=== PATIENT | female | born 1965 | race Caucasian/White ===

== ENCOUNTER 2024-02-09 19:08 | Inpatient (IN) | payer OTHER ==
[~2024-02-09] VITALS: Ht 157.5 cm; Wt 56.2 kg
[2024-02-09 19:15] VITALS: BP 113/65; PULSE 84; RESP 16; TEMP 98.1; O2SAT 100
[2024-02-09 20:08] LABS: BASOPHILS % (AUTO) 0.5 % (0.0-2.0); EOSINOPHILS # (AUTO) 0.1 K/uL (0-0.4); EOSINOPHILS % (AUTO) 1.4 % (0.0-4.0); HEMATOCRIT 36.5 % (36-48); LYMPHOCYTES # (AUTO) 2.2 K/uL (2.5-16.5); LYMPHOCYTES % (AUTO) 25.9 % (20.5-51.1); MEAN CORPUSCULAR HEMOGLOBIN 31 pg (27-31); MEAN CORPUSCULAR HGB CONC 33 g/dL (33-37); MEAN CORPUSCULAR VOLUME 92.9 fL (80-94); MONOCYTES # (AUTO) 0.7 K/uL (0.8-1.0); MONOCYTES % (AUTO) 8.2 % (1.7-9.3); NEUTROPHILS # (AUTO) 5.3 K/uL (1.8-7.7); PLATELET COUNT (AUTO) 345 K/uL (140-450); RED BLOOD CELL COUNT(AUTO) 3.93 MIL/uL (4.20-5.40); WHITE BLOOD COUNT (AUTO) 8.3 K/uL (4.8-10.8)
[2024-02-09 20:31] LABS: ALBUMIN 3.4 g/dL (3.4-5.0); TOTAL BILIRUBIN 0.3 mg/dL (0.0-1.0); TOTAL PROTEIN, SERUM 7.8 g/dL (6.4-8.2)
[2024-02-09] MEDS: MORPHINE SULFATE 4 MG/ML SYR IM ONE (20:55)
[2024-02-09 20:59] LABS: ANION GAP 14.1 (8-16); CALCIUM 9.2 mg/dL (8.5-10.1); CARBON DIOXIDE 26.1 mmol/L (21-32); CREATININE 1.1 mg/dL (0.6-1.3); POTASSIUM 4.2 mmol/L (3.5-5.1)
[2024-02-09] MEDS: NACL 0.9% 1,000 ML IV ONE (21:43)
[2024-02-09] MEDS: NACL 0.9% 1,000 ML IV SCH (22:30)
[2024-02-09] MEDS ORDERED: ONDANSETRON 4 MG/2 ML VIAL IVP PRN (22:30)
[2024-02-09] MEDS ORDERED: LORazepam 2 MG/ML VIAL IVP PRN (22:30)
[2024-02-09] MEDS ORDERED: MORPHINE SULFATE 2 MG/ML SYR IVP PRN (22:30)
[2024-02-09] MEDS ORDERED: HYDROcodone/APAP 5/325 MG 1 TAB TAB PO PRN (22:30)
[2024-02-09] MEDS ORDERED: ACETAMINOPHEN 325 MG TAB PO PRN (22:30)
[2024-02-09] MEDS ORDERED: PIPERACILLIN/TAZOBACTAM 3.375 GM in DEXTROSE 5% 50 ML IV ONE (23:00)
[2024-02-09] MEDS ORDERED: PIPERACILLIN/TAZOBACTAM 3.375 GM VIAL IV ONE (23:21)
[2024-02-09] MEDS: PIPERACILLIN/TAZOBACTAM 3.375 GM in DEXTROSE 5% 50 ML IV SCH (23:24)
[2024-02-10] VITALS (7 sets, daily range): BP systolic 122–137; BP diastolic 56–82; PULSE 65–75; RESP 16–18; TEMP 96.5–98.6; O2SAT 95–99
[2024-02-10] MEDS ORDERED: ACET500T99 PO (00:13)
[2024-02-10] MEDS ORDERED: ATOR20TA PO (00:13)
[2024-02-10] MEDS ORDERED: METF-1139 PO (00:13)
[2024-02-10] MEDS ORDERED: LISI10TA30 PO (00:13)
[2024-02-10] MEDS: PIPERACILLIN/TAZOBACTAM 3.375 GM in DEXTROSE 5% 50 ML IV SCH (05:00)
[2024-02-10] MEDS: PIPERACILLIN/TAZOBACTAM 3.375 GM VIAL IV ONE (05:10)
[2024-02-10 07:25] LABS: BASOPHILS % (AUTO) 0.5 % (0.0-2.0); EOSINOPHILS # (AUTO) 0.1 K/uL (0-0.4); EOSINOPHILS % (AUTO) 1.1 % (0.0-4.0); HEMATOCRIT 36.4 % (36-48); LYMPHOCYTES # (AUTO) 1.5 K/uL (2.5-16.5); LYMPHOCYTES % (AUTO) 24.9 % (20.5-51.1); MEAN CORPUSCULAR HEMOGLOBIN 31 pg (27-31); MEAN CORPUSCULAR HGB CONC 33 g/dL (33-37); MEAN CORPUSCULAR VOLUME 92.9 fL (80-94); MONOCYTES # (AUTO) 0.5 K/uL (0.8-1.0); MONOCYTES % (AUTO) 7.4 % (1.7-9.3); NEUTROPHILS # (AUTO) 4.1 K/uL (1.8-7.7); NEUTROPHILS % (AUTO) 66.1 % (42.2-75.2); PLATELET COUNT (AUTO) 332 K/uL (140-450); RED BLOOD CELL COUNT(AUTO) 3.91 MIL/uL (4.20-5.40); RED CELL DISTRIBUTION WIDTH 13.6 % (11.6-13.7); WHITE BLOOD COUNT (AUTO) 6.2 K/uL (4.8-10.8)
[2024-02-10 08:17] LABS: ALBUMIN 3.1 g/dL (3.4-5.0); ANION GAP 13.2 (8-16); CALCIUM 8.6 mg/dL (8.5-10.1); CARBON DIOXIDE 25.1 mmol/L (21-32); CREATININE 0.8 mg/dL (0.6-1.3); MAGNESIUM 1.5 mg/dL (1.8-2.4); POTASSIUM 4.3 mmol/L (3.5-5.1); TOTAL BILIRUBIN 0.4 mg/dL (0.0-1.0); TOTAL PROTEIN, SERUM 7.2 g/dL (6.4-8.2)
[2024-02-10] MEDS: ENOXAPARIN 40 MG/0.4 ML SYR SUBQ SCH (08:58)
[2024-02-10] MEDS: MEDS-TO-BEDS MC SCH (21:09)
[2024-02-10] MEDS: MAG SULF 2000 MG/WATER PREMIX 50 ML IV ONE (21:14)
[2024-02-11 04:00] VITALS: BP 120/57; PULSE 62; RESP 18; TEMP 96.4; O2SAT 98
[2024-02-11 06:03] LABS: APPEARANCE,URINE CLEAR (CLEAR); BILIRUBIN,URINE NEGATIVE (NEGATIVE); BLOOD, URINE NEGATIVE (NEGATIVE); COLOR,URINE YELLOW (YELLOW); LEUKOCYTE ESTERASE ,URINE 1+ (NEGATIVE); NITRITE, URINE NEGATIVE (NEGATIVE); PROTEIN,URINE NEGATIVE (NEGATIVE); UGLUCOSE TRACE (NEGATIVE); UROBILINOGEN,URINE 0.2 EU/dL (0.2 - 1)
[2024-02-11 06:15] LABS: BACTERIA,URINE 1+ /HPF (None Seen); SQUAMOUS EPITHELIAL CELL,UR 20-50 /LPF (0-3 (FEW)); WBC,URINE 16-25 (MOD) /HPF (0-5)
[2024-02-11 07:07] LABS: BASOPHILS % (AUTO) 0.5 % (0.0-2.0); EOSINOPHILS # (AUTO) 0.1 K/uL (0-0.4); EOSINOPHILS % (AUTO) 2.3 % (0.0-4.0); HEMATOCRIT 34.7 % (36-48); HEMOGLOBIN 11.4 g/dL (12.0-16.0); MEAN CORPUSCULAR HEMOGLOBIN 31 pg (27-31); MEAN CORPUSCULAR HGB CONC 33 g/dL (33-37); MEAN CORPUSCULAR VOLUME 93.2 fL (80-94); MONOCYTES # (AUTO) 0.5 K/uL (0.8-1.0); MONOCYTES % (AUTO) 8.1 % (1.7-9.3); NEUTROPHILS # (AUTO) 3.6 K/uL (1.8-7.7); NEUTROPHILS % (AUTO) 57.1 % (42.2-75.2); PLATELET COUNT (AUTO) 338 K/uL (140-450); RED BLOOD CELL COUNT(AUTO) 3.72 MIL/uL (4.20-5.40); RED CELL DISTRIBUTION WIDTH 13.9 % (11.6-13.7); WHITE BLOOD COUNT (AUTO) 6.3 K/uL (4.8-10.8)
[2024-02-11 07:40] LABS: ALBUMIN 2.9 g/dL (3.4-5.0); CALCIUM 8.5 mg/dL (8.5-10.1); CHOL/HDL RATIO 2.8 (1-4.5); CREATININE 0.7 mg/dL (0.6-1.3); TOTAL BILIRUBIN 0.5 mg/dL (0.0-1.0); TOTAL PROTEIN, SERUM 6.8 g/dL (6.4-8.2)
[2024-02-11 08:00] VITALS: BP 116/59; PULSE 61; RESP 18; TEMP 97.2; O2SAT 98
[2024-02-11 08:09] LABS: ANION GAP 11.9 (8-16); CARBON DIOXIDE 25.1 mmol/L (21-32)
[2024-02-11] MEDS: lisinopriL 10 MG TAB PO SCH (08:59)
[2024-02-11] MEDS: PANTOPRAZOLE 40 MG INJ VIAL IVP SCH (08:59)
[2024-02-11 15:22] VITALS: BP 116/59; PULSE 61; RESP 18; TEMP 97.2
== END 2024-02-11 20:10 | disposition home or self-care (01) | DRG 282 ==
LOC: MED 19:08 → MTU 22:30
PROVIDERS: ADMIT Internal Medicine; ATTEND Internal Medicine
DX: K85.90 Acute pancreatitis without necrosis or infection, unspecified (principal); E44.1 Mild protein-calorie malnutrition; E11.9 Type 2 diabetes mellitus without complications; I10 Essential (primary) hypertension; Z79.84 Long term (current) use of oral hypoglycemic drugs; Z79.899 Other long term (current) drug therapy; Z68.22 Body mass index [BMI] 22.0-22.9, adult
CPT/HCPCS: 36415; 71045; 76705; 80048; 80053; 80076; 81001; 83690; 83735; 85025; 87081; 87086; 93005; 96365; 96372; 99285; J1650; J2270; J2470; J2543; J3475; J7060; Q0092